=== PATIENT | female | born 1950 | race Caucasian/White ===

== ENCOUNTER 2021-03-21 12:41 | Emergency (ER) | payer OTHER, MEDICAID ==
[~2021-03-21] VITALS: Ht 167.6 cm; Wt 59.0 kg
[~2021-03-21 12:41] MED LIST: CYM30 PO; GABA600T PO; HYDR-3919 PO; LIP80 PO; MELA5TAB12 PO; MELO15TA13 PO; NAPR-1172 PO; ONDA4TAB5 PO; TOP25 PO; TRAZ-250 PO; ZOLP10TA2 PO
[2021-03-21 12:51] VITALS: BP_SYST 132
--- NOTE | 2021-03-21 12:57 | NUR ---
CASSIE AND ASKED TO WAIT IN THE WAITING ROOM
--- NOTE | 2021-03-21 16:54 | NUR ---
Patient to [facility] to gown for evaluation. Side rails up.
--- NOTE | 2021-03-21 17:00 | NUR ---
STEPHANIE Payton at bedside examining patient.
[2021-03-21] MEDS ORDERED: MORPHINE 4 MG INJ. 4 MG/ML VIAL IM ONE (17:15)
--- NOTE | 2021-03-21 18:00 | NUR ---
PT IS WALKING AROUND THE HALLWAY AND TAKING ON THE PHONE.
--- NOTE | 2021-03-21 18:45 | NUR ---
PT WAS EXCORTED BY SECURITY
--- NOTE | 2021-03-21 18:51 | NUR ---
Patient given written and verbal discharge instructions and verbalizes understanding. ER MD discussed with patient the results and treatment provided. Patient in stable condition. ID arm band removed. Patient educated on pain management and to follow up with PMD. Pain Scale 0/10. Opportunity for questions provided and answered. Medication side effect fact sheet provided.
[2021-03-21 18:54] VITALS: BP_SYST 132
== END 2021-03-21 18:54 | disposition home or self-care (01) ==
LOC: SED 12:41
DX: G89.29 Other chronic pain (principal); M54.5 Low back pain; E11.9 Type 2 diabetes mellitus without complications; Z79.899 Other long term (current) drug therapy
CPT/HCPCS: 96372; 99283; J2270